=== PATIENT | female | born 1970 | race Caucasian/White ===

== ENCOUNTER 2024-04-17 04:53 | Observation (INO) ==
--- NOTE | 2024-03-20 13:41 | PAT Medication Instructions ---
Medication Instructions Date of Service March 20, 2024 Home Medications acetaminophen 650 mg tablet 650 mg PO Q6H PRN prn cyanocobalamin (vitamin B-12) 1,000 mcg tablet (Vitamin B-12) 1,000 mcg PO QAM furosemide 20 mg tablet 20 mg PO QAM lisinopril 5 mg tablet 5 mg PO QPM loratadine 10 mg tablet 10 mg PO BID meloxicam 15 mg tablet 15 mg PO QAM rosuvastatin 10 mg tablet 10 mg PO QPM sertraline 200 mg capsule 200 mg PO QAM MEDICATION INSTRUCTIONS: ASK your surgeon for instructions meloxicam 15 mg tablet 15 mg PO QAM DO NOT take the morning of surgery cyanocobalamin (vitamin B-12) 1,000 mcg tablet (Vitamin B-12) 1,000 mcg PO QAM furosemide 20 mg tablet 20 mg PO QAM loratadine 10 mg tablet 10 mg PO BID Take morning of surgery With a small sip of water, OTHERWISE NOTHING TO EAT OR DRINK AFTER MIDNIGHT: acetaminophen 650 mg tablet 650 mg PO Q6H PRN prn sertraline 200 mg capsule 200 mg PO QAM Take evening before surgery acetaminophen 650 mg tablet 650 mg PO Q6H PRN prn rosuvastatin 10 mg tablet 10 mg PO QPM lisinopril 5 mg tablet 5 mg PO QPM loratadine 10 mg tablet 10 mg PO BID Other Notes If you have any questions please call us at [phone] or [phone] or [phone] or [phone]
--- NOTE | 2024-03-27 11:22 | Anesthesiology Consultation ---
Date of Service March 27, 2024 Assessment & Plan (1) Encounter for pre-operative examination: Plan - patient reports upcoming PCP pre-operative evaluation 04/03/24 (Formerly [facility] [place]). Chart Review Chart Review: Pending: Refer to Additional Notes / Consult section and Patient seen in Pre Admission Testing Teaching & Discussion Pre-Anesthesia Teaching/Discussion Notes: Instructed NPO after midnight before surgery, except medications with 15 cc of water. Medication instructions provided according to the PAT guidelines. History Surgery Operation Date: 04/17/24 09:35 Proposed Procedures p Left Total Shoulder with Open Biceps Tenodesis - Darion Ayon MD Height/Weight Height: 5 ft 9 in Weight: 152.9 kg Allergies Allergy/AdvReac Type Severity Reaction Status Date / Time No Known Allergies Allergy Mild Unverified 03/15/24 08:41 Medications Home Medications Medication Instructions Recorded Confirmed Last Taken acetaminophen 650 mg tablet 650 mg PO Q6H PRN prn 03/15/24 03/15/24 Unknown cyanocobalamin (vitamin B-12) 1,000 mcg PO QAM 03/15/24 03/15/24 Unknown 1,000 mcg tablet (Vitamin B-12) furosemide 20 mg tablet 20 mg PO QAM 03/15/24 03/15/24 Unknown lisinopril 5 mg tablet 5 mg PO QPM 03/15/24 03/15/24 Unknown loratadine 10 mg tablet 10 mg PO BID 03/15/24 03/15/24 Unknown meloxicam 15 mg tablet 15 mg PO QAM 03/15/24 03/15/24 Unknown rosuvastatin 10 mg tablet 10 mg PO QPM 03/15/24 03/15/24 Unknown sertraline 200 mg capsule 200 mg PO QAM 03/15/24 03/15/24 Unknown Past Medical History Medical History Anxiety Depression Hypercholesteremia Hypertension variable in clinical settings per pt Osteoarthritis Patient denies h/o stroke, seizures, heart attack, heart failure, DM, blood clots/DVTs or blood transfusions. Exercise / Class Metabolic Activity II 4-5 Yardwork/Stairs/Walk up hill (denies chest discomfort or shortness of breath with one flight of stairs) Past Surgical History Surgical History History of arthroscopy of left shoulder History of cholecystectomy History of hysterectomy ovaries remain per pt History of partial thyroidectomy no meds Past Anesthesia History No Hx of Anesthesia Complications and No Family Hx of Anesthesia Complications History of PONV No Hx of PONV and No Hx of Motion Sickness Social History Smoking Status: Current every day smoker (-advised) Smoking cigarettes per day: 3/4 pack Do You Dip or Chew Tobacco: No Hx Alcohol Use: Yes alcohol intake frequency: holidays/special occasions only Hx Substance Use: No substance use type: does not use Review of Systems Snoring, denies witnessed apneas. Patient denies chest pain, shortness of breath, dyspnea on exertion, snoring, witnessed apneas, reflux, fever, chills, cough, wheezing, or palpitations. Physical Exam Vital Signs Vitals BP 138/72 P 76 TEMP 98.3 SP02 97% on RA RESP 18 Physical Patient resting comfortably in chair in no acute distress, alert and oriented, responding appropriately throughout visit Full cervical extension range of motion without pain TMD 3.5 finger breadths Mallampati Score 3 Dentition: multiple chipped teeth, denies loose teeth, caps/crowns, implants or bridges Lungs: normal respiratory effort. Good air movement, clear throughout to auscultation, no adventitious breath sounds Cardiac: regular rate and rhythm, no murmurs noted Carotid arteries: negative bruit bilat Lab Results Anesthesia Preop Results Results Anesthesia Widget: WBC 12.25 K/ul (4.8-10.8) H 03/27/24 Hgb 16.2 g/dl (12.0-16.0) H 03/27/24 Hct 46.9 % (37.0-47.0) 03/27/24 Plt 248 K/uL (130-400) 03/27/24 Na 140 mmol/L (136-145) 03/27/24 K 3.9 mmol/L (3.5-5.1) 03/27/24 Cl 105 mmol/L (98-107) 03/27/24 CO2 27 mmol/L (21-32) 03/27/24 BUN 14 mg/dl (6-23) 03/27/24 Creat 0.80 mg/dl (0.6-1.2) 03/27/24 Glucose Level 99 mg/dl (70-99(Fasting)) 03/27/24 PT 10.5 Seconds (9.0-12.0) 03/27/24 PTT 28 Seconds (21-31) 03/27/24 INR 1.0 (0.9-1.1) 03/27/24 Urine Color Yellow 03/27/24 Urine Appearance Clear (Clear) 03/27/24 Urine pH 5.5 (4.5-7.5) 03/27/24 Urine Specific [place] 1.010 (1.000-1.030) 03/27/24 Urine Protein Negative (Negative) 03/27/24 Urine Glucose (UA) Negative (Negative) 03/27/24 Urine Ketones Negative (Negative) 03/27/24 Urine Blood Negative (Negative) 03/27/24 Urine Nitrite Negative (Negative) 03/27/24 Urine Bilirubin Negative (Negative) 03/27/24 Urine Urobilinogen Negative (Negative) 03/27/24 Urine Leukocyte Esterase Negative (Negative) 03/27/24 Blood Type B Positive 03/27/24 Antibody Screen NEGATIVE 03/27/24 Testing Electrocardiogram Date: 03/27/24 NSR, rate 72 bpm Chest X-Ray Date: 03/27/24 No acute chest disease.
--- NOTE | 2024-04-15 16:32 | History & Physical Report ---
Date of Service April 15, 2024 Assessment & Plan (1) Osteoarthritis of left glenohumeral joint: Plan: End-stage glenohumeral osteoarthritis with intact rotator cuff minor tendinopathy with chronic biceps tenosynovitis and previous distal clavicle excision. Plan is to proceed with an anatomic total shoulder replacement. If bone is of good quality will do a stemless total shoulder replacement otherwise if bone quality is not as good will proceed with the typical stemmed replacement. Patient will also have biceps tenodesis performed. (2) Biceps tendinitis of left shoulder: (3) History of shoulder surgery: History of Present Illness Chief Complaint: Chronic progressive left shoulder pain Primary Care Provider: Jordan Newsome 53-year-old female chronic progressive left shoulder pain over time with severe end-stage glenohumeral osteoarthritis. Patient wishes to proceed with left shoulder replacement at this time. Patient denies headaches, sweats, fevers, chills, double vision, blurred vision, cough, sore throat, dysphagia, chest pain, sob, wheezing, n/v/d/c, numbness, tingling, fatigue, urinary symptoms. ROS positive for anxiety and depression, migraines, arthritis of the spine. Allergies Allergy/AdvReac Type Severity Reaction Status Date / Time No Known Allergies Allergy Mild Unverified 03/15/24 08:41 Home Medications Medication Instructions Recorded Confirmed Type acetaminophen 650 mg tablet 650 mg PO Q6H PRN prn 03/15/24 03/15/24 History cyanocobalamin (vitamin B-12) 1,000 mcg PO QAM 03/15/24 03/15/24 History 1,000 mcg tablet (Vitamin B-12) furosemide 20 mg tablet 20 mg PO QAM 03/15/24 03/15/24 History lisinopril 5 mg tablet 5 mg PO QPM 03/15/24 03/15/24 History loratadine 10 mg tablet 10 mg PO BID 03/15/24 03/15/24 History meloxicam 15 mg tablet 15 mg PO QAM 03/15/24 03/15/24 History rosuvastatin 10 mg tablet 10 mg PO QPM 03/15/24 03/15/24 History sertraline 200 mg capsule 200 mg PO QAM 03/15/24 03/15/24 History Past Med/Surg History Problem List (Updated 04/15/24 @ 16:29 by Darion Ayon MD) History of shoulder surgery Biceps tendinitis of left shoulder Osteoarthritis of left glenohumeral joint Encounter for pre-operative examination Medical History Osteoarthritis Anxiety Depression Hypercholesteremia Hypertension variable in clinical settings per pt Surgical History History of hysterectomy ovaries remain per pt History of arthroscopy of left shoulder History of cholecystectomy History of partial thyroidectomy no meds Social History Smoking Status: Current every day smoker (-advised) Tobacco Type: Cigarettes Cigarettes Per Day: 3/4 pack; Second Hand Exposure: No; Do You Dip or Chew Tobacco: No; Tobacco Cessation Education Requested by Patient: No Hx Alcohol Use: Yes Hx Substance Use: No Preferred Language: [place] Vp Respiratory Required: No Beliefs That Will Affect Care: None Current Living Situation: Other Current Living Situation Comment: roommate Other Information That Helps Us Care for You: No Feels Safe at Home: Yes Safety Concerns: Feels Safe At This Time Assistive Devices: Glasses Review of Systems All systems reviewed & are unremarkable except as noted in HPI & below Physical Exam Constitutional: WD/WN, vitals as above Respiratory: normal respiratory effort; no respiratory distress Cardiovascular: Rate/Rhythm: regular rate and regular rhythm Musculoskeletal: Left shoulder with abnormal rhythm with old healed surgical scars with crepitation with range of motion active painful range of motion passive painful range of motion 160 degrees forward flexion with 80 degrees external and in ternal rotation. Some decrease in strength related to pain. Distal circulation sensorimotor exam intact. Skin: no rashes, warm and dry Neurologic: normal touch/pain/proprioception Psychiatric: A+Ox3, euthymic affect Results & Data Diagnostic Findings X-rays and MRI review grade 4 severe osteoarthritis glenohumeral joint with joint effusion extending into the biceps tendon sheath with chronic biceps tenosynovitis. Minimal interstitial rotator cuff tendinopathy. No substantial subacromial bursitis. Previous distal clavicle excision without inflammation in that area.
[~2024-04-17 04:53] MED LIST: ACETAMINOPHEN 1000 MG/100 ML IV IV ONE
[2024-04-17] MEDS: ACETAMINOPHEN 500 MG TAB PO SCH ×2 (06:17→14:18)
[2024-04-17] MEDS: GABAPENTIN 900 MG DOSE PO SCH (06:17)
[2024-04-17] MEDS: FAMOTIDINE 20 MG TAB PO SCH (06:18)
[2024-04-17] MEDS: LR 15ML/HR IV SCH (06:18)
[2024-04-17] MEDS: METOCLOPRAMIDE HCL 10 MG TABLET PO SCH (06:18)
[2024-04-17] MEDS: CeleBREX 200 MG CAP PO SCH (06:18)
[2024-04-17] MEDS: dexAMETHasone**PF** 10 MG/ML VIAL IV SCH (06:18)
[2024-04-17] MEDS: LR 60ML/HR IV SCH (06:19)
[2024-04-17] MEDS ORDERED: BUPIVACAINE 0.5 % 5 MG/1 ML PF 10ML VIAL ONE (06:21)
[2024-04-17] MEDS ORDERED: MIDAZOLAM HCL 1 MG/ML 2ML VIAL ONE (06:53)
[2024-04-17] MEDS ORDERED: LIDOCAINE 2% 20 MG/ML 5 ML SYR IV ONE (06:53)
[2024-04-17] MEDS ORDERED: SUGAMMADEX SODIUM 200 MG/2 ML VIAL IV ONE (06:53)
[2024-04-17] MEDS ORDERED: PROPOFOL IV EMULSION 10 MG/ML 20 ML VIAL IV ONE (06:53)
[2024-04-17] MEDS ORDERED: ROCURONIUM BROMIDE 10 MG/ML 5 ML VIAL IV ONE ×2 (06:53→06:54)
[2024-04-17] MEDS ORDERED: DexMEDEtomidine HCL IV 100 MCG/ML VIAL IV ONE (06:53)
[2024-04-17] MEDS ORDERED: fentaNYL citrate PF 100 MCG/2 ML VIAL ONE (06:53)
[2024-04-17] MEDS: TRANEXAMIC ACID 1,000 MG x 1 **TOPICAL Use Intraop TOP SCH (07:09)
[2024-04-17] MEDS: TRANEXAMIC ACID / 0.7% NACL 1,000 MG/100 ML BAG IV ONE (07:11)
[2024-04-17] MEDS ORDERED: Nursing to Pharmacy Communication SCH (07:15)
--- NOTE | 2024-04-17 07:15 | History & Physical Bridge Note ---
Date of Service April 17, 2024 History & Physical Bridge Note I have examined the patient, reviewed the History & Physical and in the interval since the performance of the History & Physical I have noted the following changes of clinical significance: no changes noted
[2024-04-17] MEDS ORDERED: ATROPINE SULFATE 0.1 MG/ML 10ML SYR IV PRN ×2 (07:29→08:08)
[2024-04-17] MEDS ORDERED: ePHEDrine sulfate 50 MG/ML AMP IV PRN ×2 (07:29→08:08)
[2024-04-17] MEDS: ceFAZolin 3000MG 3,000 MG/72.5 ML BAG IV SCH (07:30)
[2024-04-17] MEDS ORDERED: PROMETHAZINE HCL 6.25 MG in SODIUM CHLORIDE 0.9% 50 ML IV PRN (08:08)
[2024-04-17] MEDS ORDERED: HYDROmorphone INJ 2 MG/ML SYR/VIAL IV PRN (08:08)
[2024-04-17] MEDS ORDERED: ePHEDrine sulfate 50 MG/5 ML SYR ONE (08:57)
[2024-04-17] MEDS: EpINEphrine HCL INJ 1 MG/ML 1ML SYRINGE IR ONE (10:16)
[2024-04-17] MEDS: TRANEXAMIC ACID 1,000 MG **IV Intra-op IV SCH (10:37)
--- NOTE | 2024-04-17 11:05 | Operative Report ---
Post Operative Report Pre & Post Diagnosis Pre-Op diagnosis: Left shoulder glenohumeral osteoarthritis, biceps tenosynovitis, history of arthroscopic subacromial decompression distal clavicle excision, morbid obesity BMI 49.9 Operation Date: 04/17/24 07:15 <No data on this case meets the specified criteria> Postoperative diagnosis: Same, posterior capsular laxity with posterior instability I identified the patient and participated in the time-out.: Yes Procedure Left stemless anatomic total shoulder replacement, biceps tenodesis, posterior capsular shift, increased difficulty morbid obesity BMI 49.9 Operation Date: 04/17/24 07:15 <No data on this case meets the specified criteria> Surgeon Darion Ayon MD Speech And Language Assistant Charles VALENZUELA Estimated Blood Loss 100 Findings Consistent with Post-Op Diagnosis Specimens Humeral head cut Drains 2 Hemovac Anesthesia Type General Regional Complications none Disposition Disposition: Recovery Room Indications 53-year-old female history of prior arthroscopy left shoulder in the past with decompression distal clavicle excision and joint debridement and has had progression of osteoarthritis of her shoulder over time now [id number] in the glenohumeral joint with large inferior osteophytes and advanced glenohumeral osteoarthritis. Rotator cuff intact on MRI with chronic tenosynovitis biceps tendon. Description of Procedure Patient was taken to the operating room anesthetized under regional block and general anesthetic. Patient was placed in a 40 degree beachchair position with a foam headrest protective eyewear all extremities padded teds and SCDs were placed. A towel roll was placed on the medial border of the scapula of the left upper extremity. Positioning took more than normal time due to her morbid obesity. The arm was examined which demonstrated an obese arm and shoulder area and range of motion demonstrated forward flexion 160 degrees and external rotation 80 degrees internal rotation 90 degrees. An anterior deltopectoral approach was performed. Longitudinal incision was made in deltopectoral interval. Skin incised sharply and subcutaneous flaps elevated. The deltopectoral interval was identified. The cephalic vein demonstrated large vein in typical position. The cephalic vein was retracted laterally with the deltoid. The upper centimeter of the pectoralis was released for inferior exposure. Biceps tendon demonstrated marked tenosynovitis extending from the bicipital groove all the way down to the pectoralis tendon. The thickened inflamed tenosynovium was all resected and the biceps was tenodesed to the pectoralis tendon using #2 FiberWire [id number] and whipstitch type sutures. Proximal biceps was resected. Rotator cuff findings demonstrated completely intact rotator cuff. The circumflex vessels were tied off with silk ties and divided laterally. The subscapularis muscle fibers were split at the level of circumflex vessels and released off the inferior capsule with a Kitner elevator and then a blunt Hohmann retractor was placed protect the axillary nerve. The rotator interval was released down to the level of the glenoid. The subscapularis tendon was taken down with a transtendinous incision leaving a cuff of tissue for repair on the lesser tuberosity. The humeral head findings demonstrated [id number] in the glenohumeral joint with large inferior osteophytes. The inferior osteophytes were resected using an artist chisel and rongeur. The inferior capsule was released off the bone subperiosteally using a Mills elevator. A #1 Vicryl traction suture was placed into the free edge of the subscapularis tendon. A Fukuda retractor was placed into the joint. Capsule was released with Rasheed scissors down to the glenoid and off of the anterior glenoid to the rotator interval which was released to meet the capsular release creating a 360 degree release of subscapularis tendon. An anterior Bankart retractor was placed. The glenoid and labral findings demonstrated chronic thickened anterior-inferior labrum with grade 4 osteoarthritis on the glenoid completely down to eburnated bone posterior inferiorly with only some anterior and superior articular cartilage remaining.. An anterior-inferior and posterior inferior capsule release was performed electrocautery on bone and a Mills elevator. The axillary nerve was protected inferiorly with the blunt Hohmann. Attention was taken back to the humeral head. Humeral head was exposed with extension and external rotation. The oscillating saw was used to make an anatomic neck cut removing the articular surface. All the circumferential remaining osteophytes were trimmed with a rongeur. The humerus was sized for a 2 nucleus and a 48 humeral head. The bone was assessed with a thumb press test and there was solid cancellous bone. The guide for the nucleus was placed centrally and then the guidepin was placed. The surface reamer was used followed by the central drill for the nucleus. The trial nucleus was inserted and the cut protector was placed. The humerus was retracted posterior to the glenoid . A Tornier retractor ,Hohmann retractors as well as an anterior Bankart retractor were placed. The glenoid was fully exposed. The Tornier Cortiloc glenoid was used. The small 30 radius size was chosen. Patient had some anterior posterior superior inferior mismatch with very thin anterior to posterior diameter requiring the small glenoid component. The central drill hole was made followed by the reamer for the glenoid followed by widening the central hole for the central post. The guide for the peripheral drill holes was placed and the drill holes were made. The trial reduction performed with stable fixation. The trial removed and the glenoid copiously irrigated with pulsed saline solution. The drill holes were packed with epinephrine-soaked tampons. The [place] G cement was vacuum mixed. The Tornier Cortiloc small 30 radius glenoid component was then cemented in position after drying the glenoid after removal of the tampons. Fixation was excellent. All excess cement was cleared. When the cement cured we moved onto removing the cut protector doing a trial r eduction with a 48 x 18 millimeter humeral head trial. Stability was assessed and there was posterior instability with flexion and adduction. This 48 x 18 head was exchanged for a 48 x 21 soft tissue balancing head and we still had some posterior instability so the trials removed to cut protector was replaced retractors were placed on a posterior capsular shift was performed using Vicryl sutures and the posterior capsule to plicate the tissue. Retrial performed with a 48 x 21 soft tissue balancing head and stability posteriorly was improved. No instability with range of motion in the plane of the glenoid and 50% posterior translation with gentle [id number]-[id number] testing. Soft tissue tension on the subscapularis tendon was satisfactory. The trial components of the humeral head were removed and the 3 drill holes were made in the harder bone in the biceps groove area and transosseous #5 FiberWire sutures were placed. Then the humeral cut surface was reexposed with retractors and after irrigation the size 2 nucleus was impacted leaving it slightly proud until the simplicity head soft tissue balancing 48 x 21 mm humeral head was placed into the nucleus and then both were impacted into the humerus with a tight press-fit. The humerus was reduced to the glenoid. The stability was verified. The subscapularis tendon was repaired with #5 FiberWire sutures using a Anthony-Eliud suture technique. Lateral row fixation was performed with interrupted avgbwy-[id number] #2 FiberWire sutures and rotator interval was closed with #2 FiberWire sutures. Range of motion demonstrated forward flexion 150 degrees abduction 90 degrees external rotation 50 degrees without tension on repair. The pectoralis was repaired with [id number] #2 FiberWire sutures placing sutures back through the biceps tendon to reinforce the tenodesis. 2 drains were placed. The deltopectoral interval was repaired with [id number] #1 Vicryl sutures. The subcutaneous tissue was repaired in layers starting with #1 Vicryl sutures followed by 2-0 Vicryl sutures and the skin was closed with savannah. Silverlon sterile dressing was applied and a pillow sling immobilizer. The patient tolerated the procedure well. Was increased level difficulty due to morbid obesity and 45 minutes increased surgical time. Charles VALENZUELA acted as rn first assistant throughout the procedure. He functioned as rn first assistant assisting in all aspects of the procedure including patient positioning prepping draping, arm positioning, soft tissue retraction,, instrument management, subcutaneous and skin closure and p ostop care the patient as well. I attest to the content of the Intraoperative Record and any orders documented therein. Any exceptions are noted below.
[2024-04-17] MEDS: PROMETHAZINE HCL 6.25 MG in SODIUM CHLORIDE 0.9% 50 ML IV PRN (11:16)
[2024-04-17] MEDS: fentaNYL citrate PF 100 MCG/2 ML VIAL IV PRN (11:45)
[2024-04-17] MEDS: PROMETHAZINE HCL INJ 25 MG/ML 1 ML VIAL ONE (13:30)
[2024-04-17] MEDS: SODIUM CHLORIDE 0.9% 50 ML BAG ONE (13:30)
[2024-04-17] MEDS ORDERED: diphenhydrAMINE Capsule 25 MG CAP PO PRN (13:52)
[2024-04-17] MEDS ORDERED: NALOXONE HCL 0.4 MG/1 ML VIAL/CARP IV PRN (13:52)
[2024-04-17] MEDS ORDERED: MAGNESIUM HYDROXIDE SUSP 30 ML UDC PO PRN (13:52)
[2024-04-17] MEDS ORDERED: ALUMINUM/MAGNESIUM SUSP 30 ML UDC PO PRN (13:52)
[2024-04-17] MEDS ORDERED: bisacodyL 10 MG SUPP PR PRN (13:52)
[2024-04-17] MEDS: SODIUM CHLORIDE 0.9% 1,000 ML IV SCH (14:18)
[2024-04-17] MEDS: HYDROmorphone INJ 0.5 MG/0.5 ML SYR IV PRN (14:18)
--- NOTE | 2024-04-17 14:35 | Anesthesiology Progress Note ---
Date of Service April 17, 2024 Anesthesia Post Procedure Vital Signs Vital Signs: Temp Pulse Pulse Resp BP Pulse Ox O2 Del Method 04/17/24 14:22 36.5 C 80 20 120/70 96 Nasal Cannula 04/17/24 13:52 92 H 18 122/77 94 Nasal Cannula 04/17/24 13:20 Nasal Cannula 04/17/24 13:20 36.5 C 82 20 104/60 94 Nasal Cannula 04/17/24 13:00 36.4 C L 90 15 120/66 92 Nasal Cannula 04/17/24 12:45 36.4 C L 88 12 108/73 94 Nasal Cannula 04/17/24 12:35 36.4 C L 94 H 26 H 108/73 94 Nasal Cannula 04/17/24 12:25 36.4 C L 96 H 20 118/76 95 Nasal Cannula 04/17/24 12:15 36.4 C L 94 H 19 106/75 94 Nasal Cannula 04/17/24 12:05 36.4 C L 94 H 14 110/84 94 Nasal Cannula 04/17/24 11:55 90 12 116/77 94 Oxymask 04/17/24 11:45 91 H 16 123/73 95 Oxymask 04/17/24 11:35 95 H 13 99/82 L 96 Oxymask 04/17/24 11:25 92 H 21 125/57 L 96 Oxymask 04/17/24 11:15 91 H 12 124/108 H 93 Oxymask 04/17/24 11:08 36.3 C L 109 H 12 134/108 H 95 Oxymask 04/17/24 05:46 36.8 C 70 20 138/83 95 Room Air O2 Flow Rate 04/17/24 14:22 2 04/17/24 13:52 2.0 04/17/24 13:20 2 04/17/24 13:20 2 04/17/24 13:00 2 04/17/24 12:45 2 04/17/24 12:35 2 04/17/24 12:25 2 04/17/24 12:15 2 04/17/24 12:05 2 04/17/24 11:55 3 04/17/24 11:45 4 04/17/24 11:35 7 04/17/24 11:25 7 04/17/24 11:15 7 04/17/24 11:08 7 04/17/24 05:46 Pain Intensity Left Shoulder: Pain Intensity: 5 Transfer of Care Handoff Completed per policy Notes Mental Status: alert / awake / arousable and participated in evaluation Nausea / Vomiting: adequately controlled Pain: adequately controlled Airway Patency, RR, SpO2: stable & adequate BP & HR: stable & adequate Hydration State: stable & adequate Anesthetic Complications: no major complications apparent and Pt Satisfied with anesthetic care
[2024-04-17] MEDS: KETOROLAC TROMETHAMINE 15 MG/ML VIAL IV PRN (15:42)
--- NOTE | 2024-04-17 16:36 | Hospitalist Consultation ---
Date of Consultation April 17, 2024 Assessment & Plan (1) Status post total shoulder arthroplasty: This is a 53 year old female with past medical history of hypertension, hyperlipidemia, anxiety, depression, and morbid obesity who presented to the hospital on 04/17/2024 for an elective left total shoulder arthroplasty with open biceps tenodesis with Dr. Ayon. Bowel regimen, pain medication, diet, DVT prophylaxis all per primary team. Patient denies passing gas thus far has urinated twice, bladder scan prn. Per patient plans to discharge tomorrow 04/18. (2) Hypertension: Hold Lasix and Lisinopril post surgery. Will monitor BP and resume when necessary BP currently 95/58. Plan Chronic conditions: Hyperlipidemia: continue statin Mental health: continue Zoloft Disposition: continued inpatient stay per primary team Supervising Physician Co-Signing Physician Notes During face to face encounter, I obtained a history and physical examination, discussed hospital stay with patient and plan of care patient. I discussed plan of care with MERCEDES Arellano. I reviewed above note and agree with it except for the following: Consult was for medical management. Patient seen for hyperlipidemia/ hypertension. Holding kane-inhibitor post op. History of Present Illness Attending Physician: Darion Ayon MD History of Present Illness This is a 53 year old female with past medical history of hypertension, hyperlipidemia, anxiety, depression, and morbid obesity who presented to the hospital on 04/17/2024 for an elective left total shoulder arthroplasty with open biceps tenodesis with Dr. Ayon. The patient was seen this afternoon following surgery. She reported to be feeling tired. She was on 2L of O2 at time of encounter. She denied CP or SOB. States she does not have a hx of wearing oxygen. States she is compliant with at home medications. Patient states she was never able to receive Wegovy to aide with her weight loss. She states she is on Lasix for lower extremity edema. Patient states that she has urinated twice since surgery but has not passed gas. She was resting comfortably in bed at time of encounter. Allergies Allergy/AdvReac Type Severity Reaction Status Date / Time No Known Allergies Allergy Mild Verified 04/17/24 05:43 Home Medications Medication Instructions Recorded Confirmed Type cyanocobalamin (vitamin B-12) 1,000 mcg PO QAM 03/15/24 04/17/24 History 1,000 mcg tablet (Vitamin B-12) furosemide 20 mg tablet 20 mg PO QAM 03/15/24 04/17/24 History lisinopril 5 mg tablet 5 mg PO QPM 03/15/24 04/17/24 History loratadine 10 mg tablet 10 mg PO BID 03/15/24 04/17/24 History meloxicam 15 mg tablet 15 mg PO QAM 03/15/24 04/17/24 History rosuvastatin 10 mg tablet 10 mg PO QPM 03/15/24 04/17/24 History sertraline 200 mg capsule 200 mg PO QAM 03/15/24 04/17/24 History acetaminophen 500 mg tablet 1,000 mg (2 x 500 mg) PO Q8 #90 04/18/24 Rx (Tylenol Extra Strength) tabs aspirin 325 mg tablet,delayed 325 mg PO DAILY #30 tabs 04/18/24 Rx release (Ecotrin) oxycodone 5 mg tablet 5 mg PO Q4H PRN pain #20 tabs 04/18/24 Rx Patient History Medical History Osteoarthritis Anxiety Depression Hypercholesteremia Hypertension variable in clinical settings per pt Surgical History History of hysterectomy ovaries remain per pt History of arthroscopy of left shoulder History of cholecystectomy History of partial thyroidectomy no meds Social History Smoking Status: Current every day smoker Tobacco Type: Cigarettes Cigarettes Per Day: 3/4 pack; Second Hand Exposure: No; Do You Dip or Chew Tobacco: No; Tobacco Cessation Education Requested by Patient: No Hx Alcohol Use: Yes Hx Substance Use: No Preferred Language: Spanish Billet Shearer Required: No Beliefs That Will Affect Care: None Current Living Situation: Other Current Living Situation Comment: roommate Other Information That Helps Us Care for You: No Feels Safe at Home: Yes Safety Concerns: Feels Safe At This Time Assistive Devices: None Review of Systems Review of Systems: All systems reviewed & are unremarkable except as noted in HPI & below Physical Exam Constitutional: WD/WN, vitals as above Eyes: PERRL, conjunctivae normal, anicteric sclerae Respiratory: normal respiratory effort, lungs clear to auscultation Cardiovascular: RRR, no murmur, no edema Psychiatric: A+Ox3, euthymic affect Results & Data Results & Data Vital Signs (Past 12 Hours) Vital Signs Temp Pulse Pulse Resp BP Pulse Ox O2 Del Method 04/17/24 15:20 36.5 C 87 18 95/58 L 93 Room Air 04/17/24 14:22 36.5 C 80 20 120/70 96 Nasal Cannula 04/17/24 13:52 92 H 18 122/77 94 Nasal Cannula 04/17/24 13:20 Nasal Cannula 04/17/24 13:20 36.5 C 82 20 104/60 94 Nasal Cannula 04/17/24 13:00 36.4 C L 90 15 120/66 92 Nasal Cannula 04/17/24 12:45 36.4 C L 88 12 108/73 94 Nasal Cannula 04/17/24 12:35 36.4 C L 94 H 26 H 108/73 94 Nasal Cannula 04/17/24 12:25 36.4 C L 96 H 20 118/76 95 Nasal Cannula 04/17/24 12:15 36.4 C L 94 H 19 106/75 94 Nasal Cannula 04/17/24 12:05 36.4 C L 94 H 14 110/84 94 Nasal Cannula 04/17/24 11:55 90 12 116/77 94 Oxymask 04/17/24 11:45 91 H 16 123/73 95 Oxymask 04/17/24 11:35 95 H 13 99/82 L 96 Oxymask 04/17/24 11:25 92 H 21 125/57 L 96 Oxymask 04/17/24 11:15 91 H 12 124/108 H 93 Oxymask 04/17/24 11:08 36.3 C L 109 H 12 134/108 H 95 Oxymask 04/17/24 05:46 36.8 C 70 20 138/83 95 Room Air O2 Flow Rate 04/17/24 15:20 04/17/24 14:22 2 04/17/24 13:52 2.0 04/17/24 13:20 2 04/17/24 13:20 2 04/17/24 13:00 2 04/17/24 12:45 2 04/17/24 12:35 2 04/17/24 12:25 2 04/17/24 12:15 2 04/17/24 12:05 2 04/17/24 11:55 3 04/17/24 11:45 4 04/17/24 11:35 7 04/17/24 11:25 7 04/17/24 11:15 7 04/17/24 11:08 7 04/17/24 05:46 PG Care Time/CCT Total # of Minutes Spent Total Time Spent with Patient: Total time spent is greater than 50% in coordination of care (as documented) at patient's floor/unit and/or counseling patient: Coding Level of Care Code 61343 IN/OBS CONSULT LVL 3,45M Diagnoses Status post total replacement of left shoulder Z96.612 Laterality: left Primary hypertension I10 Hypertension type: primary hypertension (1) Status post total shoulder arthroplasty Laterality: left Qualified Code(s): Z96.612 - Presence of left artificial shoulder joint (2) Hypertension Hypertension type: primary hypertension Qualified Code(s): I10 - Essential (primary) hypertension
[2024-04-17] MEDS: ONDANSETRON INJ 2 MG/ML 2 ML VIAL IV PRN (16:42)
--- NOTE | 2024-04-17 16:49 | XRay Report ---
XR shoulder LT min 2V routine CLINICAL HISTORY: Post shoulder surgery TECHNIQUE: 3 views of the left shoulder were obtained. Comparison: Comparison is made to chest radiograph 03/27/24 FINDINGS: Patient is status post shoulder arthroplasty with expected postsurgical changes including soft tissue swelling and subcutaneous emphysema. No periarticular lucency or hardware fracture is seen. IMPRESSION: Expected postoperative appearance status post placement of shoulder arthroplasty. ACT 112: Negative or not required by law. Electronically signed by: Zay Villanueva M.D. 04/17/2024 4:48 PM
[2024-04-17] MEDS: TRANEXAMIC ACID / 0.7% NACL 1,000 MG/100 ML BAG IV SCH (17:19)
[2024-04-17] MEDS: ceFAZolin 2000MG 2,000 MG/15 ML SYR IV SCH (17:19)
[2024-04-17] MEDS: METOCLOPRAMIDE HCL INJ 5 MG/ML 2 ML VIAL IV PRN (17:42)
[2024-04-17 19:09] VITALS: O2SAT 93
[2024-04-17] MEDS ORDERED: lisinopril 5 MG TAB PO SCH (21:00)
[2024-04-17] MEDS: LORATADINE 10 MG TAB PO SCH (21:12)
[2024-04-17] MEDS: SENNA 8.6 MG TAB PO SCH (21:12)
[2024-04-17] MEDS: DOCUSATE SODIUM 100 MG CAP PO SCH (21:12)
[2024-04-17] MEDS: ROSUVASTATIN CALCIUM 10 MG TAB PO SCH (21:12)
[2024-04-17] MEDS: ASPIRIN 325 MG ECTAB PO SCH (21:12)
[2024-04-17] MEDS: oxyCODONE HCL IR 5 MG TAB (IMMEDIATE RELEASE) PO PRN (21:12)
[2024-04-18 07:23] VITALS: BP 128/80; PULSE 67; RESP 16; TEMP 98.1
[2024-04-18 07:29] LABS: Basophils # (auto) 0.09 K/uL (0.00-0.20); Basophils % (auto) 0.5 %; Eosinophils # (auto) 0.05 K/uL (0.00-0.50); Eosinophils % (auto) 0.3 %; Hematocrit (blood only) 39.1 % (37.0-47.0); Hemoglobin 13.4 g/dl (12.0-16.0); Immature Granulocytes # (auto) 0.13 K/uL (0.01-0.20); Immature Granulocytes % (auto) 0.7 %; Lymphocytes # (auto) 2.78 K/uL (1.20-3.40); Lymphocytes % (auto) 15.6 %; Mean Corpuscular Hemoglobin 31.3 pg (25.0-34.0); Mean Corpuscular Hgb Conc 34.3 g/dL (32.0-36.0); Mean Corpuscular Volume 91.4 fL (80.0-100.0); Mean Platelet Volume 11.8 fL (9.4-12.4); Monocytes # (auto) 1.64 K/uL (0.11-0.59); Monocytes % (auto) 9.2 %; Neutrophils # (auto) 13.16 K/uL (1.40-6.50); Neutrophils % (auto) 73.7 %; Platelet Count 208 K/uL (130-400); RDW Coefficient of Variation 12.6 % (11.5-14.5); Red Blood Count 4.28 M/uL (4.20-5.40); White Blood Count 17.85 K/ul (4.8-10.8)
[2024-04-18 07:39] LABS: BUN Creatinine Ratio 16.2 (10-20); Calcium 8.4 mg/dl (8.6-10.3); Creatinine Clr Calc Pharmacy 141.8 ml/min; Potassium 3.6 mmol/L (3.5-5.1)
[2024-04-18] MEDS: CYANOCOBALAMIN (B-12) 500 MCG TABLET PO SCH (07:55)
[2024-04-18] MEDS: MULTIVITAMIN TAB PO SCH (07:55)
[2024-04-18] MEDS: SERTRALINE HCL 100 MG TABLET PO SCH (07:55)
[2024-04-18] MEDS: dexAMETHasone 10 MG in SYRINGE 0 ML IV SCH (07:56)
[2024-04-18] MEDS: MELOXICAM 7.5 MG TAB PO SCH (07:56)
--- NOTE | 2024-04-18 08:06 | Orthopedic Progress Note ---
Date of Service April 18, 2024 Assessment & Plan (1) Osteoarthritis of left glenohumeral joint: Plan: End-stage glenohumeral osteoarthritis with intact rotator cuff minor tendinopathy with chronic biceps tenosynovitis and previous distal clavicle excision. Plan is to proceed with an anatomic total shoulder replacement. Postop biceps tenodesis anatomic stemless total shoulder replacement and posterior capsular shift. Due to patient's anatomy she was unable to wear the pillow sling so I discussed her arm positioning and not stretching out the posterior capsule of her joint. Discussed placing a pillow between her belly and her hand to avoid over internal rotation and just use regular sling. I discussed that we have to hold off on any physical therapy to allow some healing of posterior capsule prior to starting physical therapy. The Hemovac drain can be discontinued prior to discharge. Patient can be discharged home today. Follow-up in 2 weeks. (2) Biceps tendinitis of left shoulder: (3) History of shoulder surgery: Admission and Anticipated Discharge Date Admission Date: April 17, 2024 Subjective Doing well still some numbness on the radial side of her hand but nerve block is gradually wearing off. Pain manageable at this time. Review of Systems Review of Systems: No medical issues unremarkable Physical Exam Musculoskeletal: Still under the effects of nerve block with some return normal circulation. Results & Data Vital Signs (Past 12 Hours) Vital Signs Temp Pulse Resp BP Pulse Ox O2 Del Method 04/18/24 07:15 36.7 C 67 16 128/80 93 Room Air 04/18/24 03:30 36.5 C 76 18 118/75 93 Room Air 04/17/24 23:00 36.4 C L 75 16 113/80 93 Room Air Diagnostic Findings Stemless anatomic replacement with well aligned implants
[2024-04-18] MEDS ORDERED: FUROSEMIDE 20 MG TAB PO SCH (09:00)
== END 2024-04-18 11:26 | disposition home or self-care (01) ==
LOC: ASU 04:53 → 3E 04:53 → MERGE 09:35